=== PATIENT | female | born 2000 | race African-American/Black ===

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

== ENCOUNTER 2021-02-10 08:59 | Emergency (ER) | payer OTHER ==
[2021-02-11 07:53] LABS: SARS-CoV-2 PCR by NAA DETECTED (NotDetected)
== END 2021-02-10 10:12 | disposition home or self-care (01) ==
LOC: ERS 08:59
DX: U07.1 COVID-19 (principal)
CPT/HCPCS: 99283; U0003; U0005

== ENCOUNTER 2022-05-21 09:18 | Emergency (ER) | payer OTHER ==
[2022-05-21] MEDS ORDERED: Iopamidol-370 76% 500 ML MDV (1 ML CHARGE) ONE (09:58)
[2022-05-21] MEDS ORDERED: Ondansetron PF 4 MG/2 ML Vial ONE (10:23)
[2022-05-21] MEDS ORDERED: Morphine 4 MG/ML VIAL ONE (10:23)
[2022-05-21 11:01] LABS: BHCG - Serum Negative (NEGATIVE); Pregs Control Background? CLEAR/WHITE (CLR/WHITE); Pregs Control Bar Appear? YES (CONTROL BAR)
[2022-05-21 11:19] LABS: ALT (SGPT) 14 U/L (8-55); AST (SGOT) 29 U/L (5-34); Alkaline Phosphatase 61 U/L (40-110); Anion Gap 16 mmol/L (10-20); BUN (Urea Nitrogen) 12 mg/dL (7.0-18.7); Bilirubin, Total 0.8 mg/dL (0.2-1.2); Calc. Creatinine Clearance 0 mL/min (70-130); Calcium 9.1 mg/dL (7.8-10.44); Carbon Dioxide 19 mmol/L (22-29); Chloride 106 mmol/L (98-107); Estimated GFR 101; Globulin 4.4 g/dL (2.4-3.5); Glucose 86 mg/dL (70-105); Protein, Total 8.4 g/dL (6.0-8.3); Sodium 136 mmol/L (136-145)
[2022-05-21 11:28] LABS: #Eosinphils 0.1 thou/uL (0.0-0.7); #Monocytes 1.1 thou/uL (0.11-0.59); #Neutrophils 13.8 thou/uL (1.40-6.50); %Basophils 0.2 % (0.0-1.0); %Eosinophils 0.4 % (0.0-10.0); %Lymphocytes 11.8 % (21.0-51.0); %Monocytes 6.6 % (0.0-10.0); Mean Corpuscular HGB CONC 31.9 g/dL (32.0-36.0); Mean Corpuscular Volume 72.1 fl (78.0-98.0); Mean Platelet Volume 10.6 fL (7.4-10.4); Platelet Count 303 10x3/uL (130-400); RBC Distribution Width 17.1 % (11.5-14.5); Red Blood Cell (RBC) Count 4.34 mill/uL (4.20-5.40); White Blood Cell (WBC) Count 17.1 10x3/uL (4.8-10.8)
[2022-05-21] MEDS ORDERED: Lidocaine 1% PF 5 ML VIAL ONE (12:06)
[2022-05-21] MEDS ORDERED: Ketorolac Tromethamine 30 MG/ML VIAL ONE (12:06)
[2022-05-21 12:11] LABS: Band 3 % (5-11); Lymphocytes 7 % (21-51); MDiff Complete? YES; Microcytosis SLIGHT = 6-15 cells (100X) (0-5/hpf); Monocytes 2 % (0-10); Neutrophil 87 % (42-75); Ovalocytes SLIGHT = 2-5 cells (100X) (0-1/hpf); Platelet Morphology Comment Appears Adequate; Polychromasia SLIGHT = 2-3 cells (100X) (0-2/hpf)
[2022-05-21] MEDS ORDERED: fentaNYL 50 mcg/mL 1 mL Vial ONE (12:35)
[2022-05-21] MEDS ORDERED: Clindamycin/D5W 600 mg/50 ml Premix Bag ONE (12:46)
== END 2022-05-21 13:44 | disposition home or self-care (01) ==
LOC: ERS 09:18
DX: L05.01 Pilonidal cyst with abscess (principal); D72.829 Elevated white blood cell count, unspecified
CPT/HCPCS: 10080; 36415; 72193; 80053; 84703; 85025; 87040; 96365; 96375; J1885; J2270; J2405; J3010; J3490; Q9967